=== PATIENT | male | born 1995 ===

== ENCOUNTER 2024-03-13 06:35 | Emergency (ER) | payer SELFPAY ==
[2024-03-13 07:04] LABS: BASOPHILS ABSOLUTE AUTO 0.03 10^3/uL (0.00-0.50); BASOPHILS PERCENT AUTO 0.2 % (0-1); EOSINOPHILS ABSOLUTE AUTO 0.01 10^3/uL (0.00-1.50); EOSINOPHILS PERCENT AUTO 0.1 % (0-6); HEMATOCRIT 48.7 % (42.0-52.0); HEMOGLOBIN 16.1 g/dL (14.0-18.0); IMMATURE GRAN ABSOLUTE AUTO 0.05 10^3/uL (0.00-0.49); IMMATURE GRAN PERCENT AUTO 0.3 % (0.0-4.9); LYMPHOCYTES ABSOLUTE AUTO 1.34 10^3/uL (0.60-5.00); LYMPHOCYTES PERCENT AUTO 7.2 % (24-44); MEAN CORPUSCULAR HEMOGLOBIN 29.1 pg (27.0-32.0); MEAN CORPUSCULAR HGB CONC 33.1 g/dL (32.0-36.0); MEAN CORPUSCULAR VOLUME 88.1 fL (83.0-97.0); MONOCYTES ABSOLUTE AUTO 0.92 10^3/uL (0.00-1.50); MONOCYTES PERCENT AUTO 4.9 % (0-10); NEUTROPHILS ABSOLUTE AUTO 16.36 x10^3/uL (1.80-8.00); NEUTROPHILS PERCENT AUTO 87.3 % (41-71); PLATELET COUNT,PLT 263 10^3/uL (150-400); RED BLOOD CELL COUNT 5.53 x10^6/uL (4.50-6.00); WHITE BLOOD CELL COUNT,WBC 18.7 10^3/uL (4.0-11.0)
[2024-03-13 07:04] LABS: APPEARANCE,URINE CLOUDY (CLEAR); BILIRUBIN,URINE LARGE (NEGATIVE); COLOR,URINE RED (YELLOW); GLUCOSE,URINE 100 mg/dL (NEGATIVE); KETONES,URINE 80 mg/dL (NEGATIVE); LEUKOCYTE ESTERASE,URINE LARGE (NEGATIVE); NITRITE,URINE NEGATIVE (NEGATIVE); OCCULT BLOOD,URINE LARGE (NEGATIVE); PH,URINE 8.5 (4.5-8.0); PROTEIN,URINE >=300 mg/dL (NEGATIVE); UROBILINOGEN,URINE >=8.0 EU/dL (0.2-1.0)
[2024-03-13 07:08] LABS: BACTERIA,URINE OCCASIONAL /HPF (NOT SEEN); EPITHELIAL CELLS,URINE NOT SEEN /HPF (NOT SEEN); MUCUS,URINE OCCASIONAL /HPF (NOT SEEN); RBC,URINE >100 /HPF (0-5); WBC,URINE 0-5 /HPF (0-5)
[2024-03-13 07:12] LABS: BILIRUBIN TOTAL 0.7 mg/dL (0.0-1.0); CALCIUM 9.2 mg/dL (8.4-10.1); CREATININE 1.1 mg/dL (0.7-1.3); EST CRCL DRUG DOSING (CG) 112.99 mL/min; POTASSIUM,K 3.9 mEq/L (3.5-5.0); PROTEIN TOTAL,TP 7.4 g/dL (6.4-8.2)
[2024-03-13] MEDS ORDERED: Naloxone 2 MG/2 ML Syringe IVPUSH PRN (07:18)
[2024-03-13] MEDS ORDERED: HYDROmorphone 1 MG/ML Syringe IVPUSH PRN (07:18)
[2024-03-13] MEDS ORDERED: Ondansetron 4 MG/2 ML SDV IVPUSH PRN (07:19)
[2024-03-13] MEDS: Sodium Chloride 0.9% 1,000 ML IV ONE (07:23)
[2024-03-13] MEDS: Iopamidol 755 Mg/ML 100 ML Bottle IVPUSH ONE (07:59)
[2024-03-13] MEDS: cefTRIAXone 1 GM Vial IVPUSH ONE (09:13)
== END 2024-03-13 09:25 | disposition home or self-care (01) ==
LOC: CC.ED 06:35
DX: N20.0 Calculus of kidney (principal); F17.210 Nicotine dependence, cigarettes, uncomplicated
CPT/HCPCS: 36415; 74177; 80053; 81001; 85025; 96361; 96374; 99284; J0696; J7030; Q9967